=== PATIENT | female | born 1975 | race Caucasian/White ===

== ENCOUNTER → 2018-08-04 11:04 | Outpatient (CLI) | payer OTHER, SELFPAY ==
--- NOTE | 2018-08-04 | DI.US.S_ITS ---
PROCEDURE: US PELVIC COMPLETE INDICATIONS: PELVIC AND PERONEAL PAIN TECHNIQUE: Real-time scanning was performed of the pelvic organs, with image documentation. Additional endovaginal scanning was necessary due to incomplete visualization of the adnexal and endometrial structures by transabdominal scanning. COMPARISON: None. FINDINGS: Transabdominal scanning: A mild amount of free pelvic fluid is seen, which is considered to be within physiologic limits. Limited scanning through the kidneys shows no hydronephrosis. Endovaginal scanning: Uterus: Uterus is normal in size at 7.7 x 3.9 x 5.4 cm. The endometrium measures 10 mm in combined thickness. The endometrial stripe appears heterogeneous. Echogenic foci can be seen within the cervix. Ovaries: The right ovary measures 4 x 2.1 x 2.2 cm. Within the right ovary, there is a complex cystic structure seen that measures 2.1 x 1.8 x 2 cm. The left ovary measures 2.6 x 1.4 x 1.6 cm and demonstrates an unremarkable sonographic appearance. IMPRESSION: Likely hemorrhagic cyst of the right ovary. At clinical discretion, a followup pelvic ultrasound is suggested in 6 weeks to assure resolution/ improvement. Likely calcification can be seen within the cervix. Dictated by: Keron Schwartz M.D. on 08/04/2018 at 11:12 Approved by: Keron Schwartz M.D. on 08/04/2018 at 11:14
== END ==
PROVIDERS: PCP Family Medicine; Visit Provider Family Medicine
DX: R10.2 Pelvic and perineal pain (principal); N83.201 Unspecified ovarian cyst, right side
CPT/HCPCS: 76830; 76856

== ENCOUNTER → 2025-02-23 12:16 | Outpatient (CLI) | payer BC, SELFPAY ==
--- NOTE | 2025-02-23 12:21 | DI.MG.S_ITS ---
MM screening mammo BI: 02/23/2025. BI-RADS: 1 CLINICAL: 49-year old female for bilateral screening mammogram. Tyrer-Cuzick lifetime risk of 16.9%. No personal or first-degree family history of breast cancer. Current reported family history of breast cancer: maternal grandmother. PRIOR EXAMS Baseline. MAMMOGRAPHY TECHNIQUE: 2D and 3D (tomosynthesis) digital mammographic views obtained, with additional images as needed for full coverage. Current study was also evaluated with a Computer Aided Detection (CAD) system. DENSITY C. The breasts are heterogeneously dense, which may obscure small masses. MAMMOGRAPHY FINDINGS Bilateral: No suspicious mass, asymmetry, microcalcification, or other abnormality seen. IMPRESSION: * No evidence of malignancy. RECOMMENDATIONS Bilateral * Annual screening mammography. OVERALL ASSESSMENT CATEGORY BI-RADS-1: Negative. The [employer] recommends annual screening mammography beginning at age 40 for women with average risk of breast cancer. ELECTRONICALLY SIGNED: Carlos Bettencourt M.D. on 02/25/2025 at 07:03:17 AM PT Interpreting Station ID: [id number]
== END ==
LOC: MAMMO 12:20
PROVIDERS: PCP Family Medicine; Referring Provider Family Medicine; Visit Provider Family Medicine
DX: Z12.31 Encounter for screening mammogram for malignant neoplasm of breast (principal); R92.333 Mammographic heterogeneous density, bilateral breasts
CPT/HCPCS: 77063; 77067